=== PATIENT | female | born 1945 | race Caucasian/White ===

== ENCOUNTER 2020-09-12 18:51 | Inpatient (IN) ==
[2020-09-12] MEDS ORDERED: ACETAMINOPHEN 1,000 MG/100 ML BAG IV ONE (19:18)
[2020-09-12] MEDS: 0.9 % SODIUM CHLORIDE 1,000 ML IV SCH ×2 (19:21→22:09)
--- NOTE | 2020-09-12 19:29 | Emergency Department Note ---
Altered Mental Status HPI General Chief Complaint: Altered Mental Status Stated Complaint: cough, altered mental Time Seen by Provider: 09/12/20 18:55 Source: EMS Mode of arrival: EMS History of Present Illness HPI Narrative: This is a 74-year-old female with a history of dementia recently placed on Namenda about 1 month ago who presents with increasing confusion and altered mental status. Her son Rico is with her and gives all of her history today. He states that she has had memory problems for the last 2 years, and they have become progressively worse in the last month. She lives independently at home, and up until 2 weeks ago was able to accomplish most ADLs without assistance. He states that she is now forgetting to eat, take care of her animals, and is not urinating in the toilet. He states that about 2 weeks ago she stopped making sense with her speech. He also notes that she's been hallucinating people that aren't there. He does note that she had a cough. He cannot tell me when it started, but his sisters who are not local have noticed that she has been coughing while speaking with her on the telephone. Upon presentation the patient's temperature is 102.1 F by oral temp. She is not tachycardic and is satting normally on room air. Rapid Covid and influenza screens are negative. Has history of permanent pacemaker, which was switched to an ICD per her daughter's report. Carries a history of CAD, CKD stage III. Related Data Previous Rx's Medication Instructions Recorded losartan 50 mg tablet 50 mg PO QHS #30 tab 08/09/20 memantine 7 mg capsule 7 mg PO QHS #30 each 08/09/20 sprinkle,extended release 24hr Allergies Allergy/AdvReac Type Severity Reaction Status Date / Time Sulfa (Sulfonamide Allergy Intermediate Rash Verified 08/09/20 14:08 Antibiotics) Review of Systems ROS ROS Narrative: Narrative: All systems ED: reviewed and negative except as stated. [facility] Narrative Patient History Narrative: Narrative: Medical/Surgical/Family History All Active Problems (Updated 09/12/20 @ 20:15 by Analy Quiroz PA-C) Altered mental status (Acute) Fever (Acute) Hallucination (Acute) Dementia associated with other underlying disease (Acute) CKD stage G3b/A1, GFR 30-44 and albumin creatinine ratio <30 mg/g (Chronic) Localized pain (Chronic) Shoulder pain (Chronic) History of left knee replacement (Chronic ~2012) Status post arthroscopic surgery of left knee (Chronic ~2010) Pilonidal cyst (Chronic) Status post implantation of automatic cardioverter/defibrillator (AICD) (Chronic) Bradycardia (Chronic) Pulmonary nodule (Chronic) Enlarged uterus (Chronic) Anxiety (Chronic) Memory loss (Chronic) Nocturnal leg cramps (Chronic) CAD (coronary artery disease) (Chronic) Myalgia (Chronic) Chest pain, precordial (Chronic) Urinary incontinence (Chronic) Fever blister (Chronic) Hip pain (Chronic) Insomnia (Chronic) Hypertension (Chronic) Decreased renal function (Chronic) Medical History (Updated 09/12/20 @ 20:15 by Analy Quiroz PA-C) Anxiety Bradycardia CAD (coronary artery disease) Chest pain, precordial Decreased renal function Enlarged uterus Fever blister Hip pain Hypertension Stopped her losartan on her own accord. Restart at 50 mg qHS Insomnia Localized pain Memory loss Currently on her Namenda and donepezil. Myalgia Nocturnal leg cramps Pilonidal cyst Pulmonary nodule Shoulder pain Urinary incontinence Surgical History History of left knee replacement (~2012) Status post arthroscopic surgery of left knee (~2010) Status post implantation of automatic cardioverter/defibrillator (AICD) Family History Other No pertinent family history Social History Smoking Status: Former smoker Alcohol Intake Frequency: does not drink Substance Use: does not use Exam Narrative Narrative: General: Alert to self only, appears agitated and confused. Not able to follow commands. Nontoxic appearing. HEENT: PERRLA, EOMI, normocephalic. Dry mucous membranes. Normal facies and normal dentition. Rosacea rash noted to the face. Chest: Symmetric Respiratory: Lungs clear to auscultation bilaterally. No respiratory distress. Unlabored breathing. Dry cough noted. Heart: Regular rate and rhythm, no murmurs/clicks/rubs. Abdomen: Non-tender, Non distended, hypoactive bowel tones. No organomegaly. Extremities: Warm and well perfused. No edema. DP 2+ bilaterally. No venous stasis. Neuro: No focal deficits. Cranial nerves II-XII normal. Moving all fours. Skin: Warm dry, rosacea rash to the face no cyanosis. Psych: Alert, not oriented, minimally able to follow commands. Heme/Lymph: No bruising Course Course Course Narrative: 74-year-old female with baseline dementia and fever presents with altered mental status x2 weeks. Reevaluation(s) Reevaluation #1: Obtain basic labs, blood cultures, chest x-ray, urine, Covid and influenza screens, procalcitonin Start IV fluids, 30 mL/kg Acetaminophen for fever At this time she meets criteria for sepsis with altered mental status and fever, will start broad-spectrum antibiotics Vital Signs Vital signs: Vital Signs Temperature 99.1 F H 09/12/20 18:51 Pulse Rate 78 09/12/20 18:51 Respiratory Rate 14 09/12/20 18:51 Blood Pressure 123/70 09/12/20 18:51 Pulse Oximetry (%) 99 09/12/20 18:51 Temperature 102.1 F H 09/12/20 19:18 Pulse Rate 78 09/12/20 18:51 Respiratory Rate 14 09/12/20 18:51 Blood Pressure 123/70 09/12/20 18:51 Pulse Oximetry (%) 99 09/12/20 18:51 MDM MDM Narrative Medical decision making narrative: Altered mental status Fever Rule out sepsis Patient has been started on broad-spectrum antibiotics and IV fluids. Sepsis work-up is pending including a lactic acid, blood cultures, chest x-ray and, basic labs. A procalcitonin is also pending. The patient is signed out to Dr. Ottoniel Morales at change of shift. Please see his note for further details. Lab Data Result diagrams: 09/12/20 19:21 09/12/20 19:20 ED POC Tests ED POC Tests: ALAINA - Influenza A Negative ALAINA - Influenza B Negative ALAINA - SARS Antigen Negative Discharge Plan Patient/Caregiver Discharge Instructions Pt seen by DIRECTOR OF RETENTION/PA only: No Clinical Impression: Altered mental status, Fever, Hallucination Patient Disposition: Still a Patient Follow up with: Olga Bass MD [Primary Care Provider] - Prescriptions: No Action memantine [Namenda XR] 7 mg capsule,sprinkle,ER 24hr 7 mg PO QHS Qty: 30 RF: 12 losartan 50 mg tablet 50 mg PO QHS Qty: 30 RF: 12
[2020-09-12] MEDS ORDERED: PIPERACILLIN SODIUM/TAZOBACTAM 3.375 GM in DEXTROSE 5% IN WATER 50 ML IV ONE (19:31)
[2020-09-12 20:50] LABS: Basophils # (Auto) 0.06 K/mcL (0.00-0.20); Basophils % (Auto) 0.3 % (0.0-2.0); Eosinophils # (Auto) 0 K/mcL (0.00-0.70); Eosinophils % (Auto) 0 % (0.0-7.0); Hematocrit 38.9 % (36.0-48.0); Hemoglobin 12.7 g/dL (12.0-15.0); Lymphocytes % (Auto) 3.5 % (15.0-49.0); Mean Cell Volume 89.6 fL (80.0-100.0); Mean Corpuscular HGB Conc 32.6 g/dL (31.0-36.0); Mean Platelet Volume 11.3 fL (7.4-10.4); Monocytes # (Auto) 1.92 K/mcL (0.10-0.90); Monocytes % (Auto) 8.4 % (1.0-12.0); Neutrophils % (Auto) 87.8 % (38.0-78.0); Platelet Count 312 K/mcL (140-440); RBC 4.34 M/mcL (4.00-5.20); WBC 22.9 K/mcL (4.5-11.0)
[2020-09-12 20:57] LABS: Appearance,Urine CLOUDY (Clear); Bacteria,Urine FEW /hpf (0); Bilirubin,Urine Negative (Negative); Color,Urine AMBER; Culture Indicated,Urine Yes; Glucose,Urine (UA) Negative (Negative); Ketones,Urine Negative (Negative); Leukocyte Esterase,Urine Negative /ug (Negative); Mucus,Urine FEW /hpf; Nitrate,Urine Negative (Negative); Protein,Urine 30 mg/dL (Negative); Specific Gravity,Urine 1.019 (1.000-1.035); Urine Budding Yeast MANY /hpf; Urine Granular Cast 4 /lph (0-0); Urine RBC 13 /hpf (0-3); Urine Squamous Epithelial Cell 0 /hpf (0-4); Urine WBC 6 /hpf (0-4)
[2020-09-12 21:12] LABS: ALT/SGPT 53 U/L (<40); AST/SGOT 81 U/L (<32); Albumin 3.2 gm/dL (3.2-5.2); Albumin/Globulin Ratio 0.7 (1.0-2.3); Alkaline Phosphatase 199 U/L (39-117); Bilirubin,Total 0.9 mg/dL (0.1-1.0); Blood Urea Nitrogen 82 mg/dL (8-23); Calcium 9.6 mg/dL (8.6-10.4); Carbon Dioxide 24 mmol/L (22-30); Chloride 96 mmol/L (96-108); Globulin 4.4 gm/dL (2.2-3.7); Glomerular Filtration Rate 21; Glucose 100 mg/dL (70-105)
[2020-09-12] MEDS ORDERED: ONDANSETRON 4 MG/2 ML VIAL IV ONE (21:45)
[2020-09-12] MEDS ORDERED: ACETAMINOPHEN 325 MG TABLET PO PRN (21:45)
--- NOTE | 2020-09-12 21:54 | Emergency Department Note ---
HPI General Chief complaint: Altered Mental Status Stated complaint: cough, altered mental Time Seen by Provider: 09/12/20 18:55 Source: EMS Mode of arrival: EMS History of Present Illness HPI Narrative: Narrative: 74-year-old female presents to the emergency department with altered mental status. Was mainly seen by the physician bilingual medical assistant and then was signed out to me please refer to their note for full history and physical. Related Data Previous Rx's Medication Instructions Recorded losartan 50 mg tablet 50 mg PO QHS #30 tab 08/09/20 memantine 7 mg capsule 7 mg PO QHS #30 each 08/09/20 sprinkle,extended release 24hr Allergies Allergy/AdvReac Type Severity Reaction Status Date / Time Sulfa (Sulfonamide Allergy Intermediate Rash Verified 08/09/20 14:08 Antibiotics) Review of Systems ROS ROS Narrative: Narrative: [facility] Narrative Patient History Narrative: Narrative: Medical/Surgical/Family History All Active Problems (Updated 09/12/20 @ 21:57 by Ottoniel Morales DO) Altered mental status (Acute) Fever (Acute) Hallucination (Acute) Sepsis (Acute) Acute cystitis with hematuria (Acute) Dementia associated with other underlying disease (Acute) CKD stage G3b/A1, GFR 30-44 and albumin creatinine ratio <30 mg/g (Chronic) Localized pain (Chronic) Shoulder pain (Chronic) History of left knee replacement (Chronic ~2012) Status post arthroscopic surgery of left knee (Chronic ~2010) Pilonidal cyst (Chronic) Status post implantation of automatic cardioverter/defibrillator (AICD) (Chronic) Bradycardia (Chronic) Pulmonary nodule (Chronic) Enlarged uterus (Chronic) Anxiety (Chronic) Memory loss (Chronic) Nocturnal leg cramps (Chronic) CAD (coronary artery disease) (Chronic) Myalgia (Chronic) Chest pain, precordial (Chronic) Urinary incontinence (Chronic) Fever blister (Chronic) Hip pain (Chronic) Insomnia (Chronic) Hypertension (Chronic) Decreased renal function (Chronic) Medical History (Updated 09/12/20 @ 21:57 by Ottoniel Morales DO) Anxiety Bradycardia CAD (coronary artery disease) Chest pain, precordial Decreased renal function Enlarged uterus Fever blister Hip pain Hypertension Stopped her losartan on her own accord. Restart at 50 mg qHS Insomnia Localized pain Memory loss Currently on her Namenda and donepezil. Myalgia Nocturnal leg cramps Pilonidal cyst Pulmonary nodule Shoulder pain Urinary incontinence Surgical History History of left knee replacement (~2012) Status post arthroscopic surgery of left knee (~2010) Status post implantation of automatic cardioverter/defibrillator (AICD) Family History Other No pertinent family history Social History Smoking Status: Former smoker Alcohol Intake Frequency: does not drink Substance Use: does not use Exam Narrative Narrative: Narrative: Course Vital Signs Vital signs: Vital Signs Temperature 99.1 F H 09/12/20 18:51 Pulse Rate 78 09/12/20 18:51 Respiratory Rate 14 09/12/20 18:51 Blood Pressure 123/70 09/12/20 18:51 Pulse Oximetry (%) 99 09/12/20 18:51 Temperature 99.9 F H 09/12/20 20:48 Pulse Rate 87 09/12/20 20:48 Respiratory Rate 14 09/12/20 18:51 Blood Pressure 117/76 09/12/20 20:48 Pulse Oximetry (%) 92 09/12/20 20:48 MDM MDM Narrative Medical decision making narrative: Narrative: Patient presents here with altered mental status. Found that patient seems to have a UTI as well as an acute kidney injury and patient was septic and met SIRS criteria. Did have an elevated white count. She did receive Zosyn here which should have good coverage for her UTI. We will continue that. She did receive 1 L of IV fluids due to worry about fluid overload we did not give her the full 30 mL/kg bolus which I think this is reasonable. She is well hydrated afterwards. On the reperfusion exam which was done by myself at 2150 patient has good capillary refill she has a regular rate and rhythm of her heart. Normal lung sounds bilaterally. She has 2+ pulses in the carotids femorals and radials. She is mildly confused but is alert. And her capillary refill is normal. I did get a chest x-ray as interpreted by myself there is no signs of pneumonia or pneumothorax no acute findings found on the chest x-ray based on my interpretation. Patient at this time looks well and but she does need to be admitted for continued IV antibiotics as well as the kidney injury. I did speak with the hospitalist Dr. Solano who agreed to admit the patient to the PCU. We did speak with family and they confirmed the CODE STATUS to be DNR/DNI but do ev erything up to that point. The person I talked to that made this decision was daughter who is the decision maker for her. Patient does meet criteria for severe sepsis secondary to a known infection as well as the leukocytosis meeting SIRS criteria and having acute organ dysfunction with the acute kidney injury. Although patient has had stable blood pressure and she is not on any signs of septic shock as well as having a negative lactate. Lab Data Result diagrams: 09/12/20 19:21 09/12/20 19:20 Labs: Lab Results 09/12/20 09/12/20 09/12/20 Range/Units 19:20 19:20 19:20 WBC (4.5-11.0) K/mcL RBC (4.00-5.20) M/mcL Hgb (12.0-15.0) g/dL Hct (36.0-48.0) % MCV (80.0-100.0) fL MCH (26.0-34.0) pg MCHC (31.0-36.0) g/dL RDW (11.5-14.5) % Plt Count (140-440) K/mcL MPV (7.4-10.4) fL Neut % (Auto) (38.0-78.0) % Lymph % (Auto) (15.0-49.0) % [place] % (Auto) (1.0-12.0) % Eos % (Auto) (0.0-7.0) % Baso % (Auto) (0.0-2.0) % Lymph # (Auto) (1.50-4.80) K/mcL [place] # (Auto) (0.10-0.90) K/mcL Eos # (Auto) (0.00-0.70) K/mcL Baso # (Auto) (0.00-0.20) K/mcL Absolute Neutrophils (1.80-8.00) K/mcL VBG Lactic Acid 1.4 (0.5-2.0) mmol/L Sodium 134 (133-145) mmol/L Potassium 3.9 (3.3-5.1) mmol/L Chloride 96 (96-108) mmol/L Carbon Dioxide 24 (22-30) mmol/L Anion Gap 14.0 (8.0-16.0) BUN 82 H (8-23) mg/dL Creatinine 2.2 H (0.6-1.1) mg/dL GFR Calculation 21 Glucose 100 (70-105) mg/dL Calcium 9.6 (8.6-10.4) mg/dL Total Bilirubin 0.9 (0.1-1.0) mg/dL AST 81 H (<32) U/L ALT 53 H (<40) U/L Alkaline Phosphatase 199 H (39-117) U/L Total Protein 7.6 (5.9-8.4) gm/dL Albumin 3.2 (3.2-5.2) gm/dL Globulin 4.4 H (2.2-3.7) gm/dL Albumin/Globulin Ratio 0.7 L (1.0-2.3) Procalcitonin 1.83 H (<0.10) ng/mL Urine Color Urine Appearance (Clear) Urine pH (5.0-9.0) Ur Specific Edgar (1.000-1.035) Urine Protein (Negative) mg/dL Urine Glucose (UA) (Negative) mg/dL Urine Ketones (Negative) mg/dL Urine Occult Blood (Negative) mg/dL Urine Nitrate (Negative) Urine Bilirubin (Negative) mg/dL Urine Urobilinogen mg/dL Ur Leukocyte Esterase (Negative) /ug Urine RBC (0-3) /hpf Urine WBC (0-4) /hpf Ur Squamous Epith Cells (0-4) /hpf Urine Bacteria (0) /hpf Granular Casts (0-0) /lph Urine Mucus (None) /hpf Urine Yeast (Budding) (None) /hpf Ur Culture Indicated? 09/12/20 09/12/20 Range/Units 19:21 19:21 WBC 22.9 H (4.5-11.0) K/mcL RBC 4.34 (4.00-5.20) M/mcL Hgb 12.7 (12.0-15.0) g/dL Hct 38.9 (36.0-48.0) % MCV 89.6 (80.0-100.0) fL MCH 29.3 (26.0-34.0) pg MCHC 32.6 (31.0-36.0) g/dL RDW 14.0 (11.5-14.5) % Plt Count 312 (140-440) K/mcL MPV 11.3 H (7.4-10.4) fL Neut % (Auto) 87.8 H (38.0-78.0) % Lymph % (Auto) 3.5 L (15.0-49.0) % [place] % (Auto) 8.4 (1.0-12.0) % Eos % (Auto) 0 (0.0-7.0) % Baso % (Auto) 0.3 (0.0-2.0) % Lymph # (Auto) 0.80 L (1.50-4.80) K/mcL [place] # (Auto) 1.92 H (0.10-0.90) K/mcL Eos # (Auto) 0 (0.00-0.70) K/mcL Baso # (Auto) 0.06 (0.00-0.20) K/mcL Absolute Neutrophils 20.11 H (1.80-8.00) K/mcL VBG Lactic Acid (0.5-2.0) mmol/L Sodium (133-145) mmol/L Potassium (3.3-5.1) mmol/L Chloride (96-108) mmol/L Carbon Dioxide (22-30) mmol/L Anion Gap (8.0-16.0) BUN (8-23) mg/dL Creatinine (0.6-1.1) mg/dL GFR Calculation Glucose (70-105) mg/dL Calcium (8.6-10.4) mg/dL Total Bilirubin (0.1-1.0) mg/dL AST (<32) U/L ALT (<40) U/L Alkaline Phosphatase (39-117) U/L Total Protein (5.9-8.4) gm/dL Albumin (3.2-5.2) gm/dL Globulin (2.2-3.7) gm/dL Albumin/Globulin Ratio (1.0-2.3) Procalcitonin (<0.10) ng/mL Urine Color [place]iana Urine Appearance Cloudy A (Clear) Urine pH 5.0 (5.0-9.0) Ur Specific [place] 1.019 (1.000-1.035) Urine Protein 30 A (Negative) mg/dL Urine Glucose (UA) Negative (Negative) mg/dL Urine Ketones Negative (Negative) mg/dL Urine Occult Blood 0.20 (Negative) mg/dL Urine Nitrate Negative (Negative) Urine Bilirubin Negative (Negative) mg/dL Urine Urobilinogen 4.0 A mg/dL Ur Leukocyte Esterase Negative (Negative) /ug Urine RBC 13 H (0-3) /hpf Urine WBC 6 H (0-4) /hpf Ur Squamous Epith Cells 0 (0-4) /hpf Urine Bacteria Few A (0) /hpf Granular Casts 4 H (0-0) /lph Urine Mucus Few A (None) /hpf Urine Yeast (Budding) Many A (None) /hpf Ur Culture Indicated? Yes ED POC Tests ED POC Tests: ALAINA - Influenza A Negative ALAINA - Influenza B Negative ALAINA - SARS Antigen Negative Discharge Plan Patient/Caregiver Discharge Instructions Pt seen by TRAVELERS' AID WORKER/PA only: Yes Clinical Impression: Hallucination, Acute cystitis with hematuria Altered mental status Qualifiers: Altered mental status type: unspecified Qualified Code(s): R41.82 - Altered mental status, unspecified Fever Qualifiers: Fever type: unspecified Qualified Code(s): R50.9 - Fever, unspecified Sepsis Qualifiers: Sepsis type: sepsis due to unspecified organism Sepsis acute organ dysfunction status: with acute organ dysfunction Severe sepsis acute organ dysfunction type: acute renal failure Acute renal failure type: unspecified Severe sepsis shock status: without septic shock Qualified Code(s): A41.9 - Sepsis, unspecified organism Activity: increase activity as tolerated Patient Disposition: Xfer As Inpt ([facility]) Follow up with: Olga Bass MD [Primary Care Provider] - Prescriptions: No Action memantine [Namenda XR] 7 mg capsule,sprinkle,ER 24hr 7 mg PO QHS Qty: 30 RF: 12 losartan 50 mg tablet 50 mg PO QHS Qty: 30 RF: 12
[2020-09-13] MEDS: PIPERACILLIN SODIUM/TAZOBACTAM 3.375 GM in DEXTROSE 5% IN WATER 50 ML IV SCH ×2 (00:45→05:28)
[2020-09-13 07:14] LABS: Basophils # (Auto) 0.05 K/mcL (0.00-0.20); Basophils % (Auto) 0.3 % (0.0-2.0); Eosinophils # (Auto) 0.01 K/mcL (0.00-0.70); Eosinophils % (Auto) 0.1 % (0.0-7.0); Hematocrit 35.3 % (36.0-48.0); Hemoglobin 11.7 g/dL (12.0-15.0); Lymphocytes # (Auto) 1.06 K/mcL (1.50-4.80); Lymphocytes % (Auto) 5.9 % (15.0-49.0); Mean Cell Volume 89.1 fL (80.0-100.0); Mean Corpuscular HGB Conc 33.1 g/dL (31.0-36.0); Mean Platelet Volume 10.9 fL (7.4-10.4); Monocytes # (Auto) 1.42 K/mcL (0.10-0.90); Monocytes % (Auto) 7.9 % (1.0-12.0); Neutrophils % (Auto) 85.8 % (38.0-78.0); Platelet Count 274 K/mcL (140-440); RBC 3.96 M/mcL (4.00-5.20); Red Cell Distribution Width 14.2 % (11.5-14.5)
--- NOTE | 2020-09-13 07:38 | XRay Report ---
HISTORY: Cough, altered mental status FINDINGS: A large alveolar infiltrate is present in the right upper lobe which contains air bronchograms. There is a band of atelectasis at the left costophrenic sulcus. The lungs are otherwise clear. The heart size is normal. Pacemaker is well-positioned. There is no congestive heart failure or pleural effusion. Comparison with the prior exam from 10/01/14 shows the pneumonia is new. IMPRESSION: Right upper lobe pneumonia Interpreted and Authenticated by: Abelino Street 09/13/20
[2020-09-13] MEDS ORDERED: POLYETHYLENE GLYCOL 3350 17 GM PACKET PO PRN ×2 (08:20→12:16)
[2020-09-13] MEDS ORDERED: ACETAMINOPHEN 650 MG/65 ML BAG IV PRN ×2 (08:20→12:16)
[2020-09-13] MEDS ORDERED: ACETAMINOPHEN 325 MG TABLET PO PRN ×3 (08:20→12:16)
[2020-09-13] MEDS ORDERED: guaiFENesin/CODEINE 10 ML UDC PO PRN ×2 (08:20→12:16)
[2020-09-13] MEDS ORDERED: MAGNESIUM SULFATE 2 GM/50 ML BAG IV PRN ×2 (08:20→12:16)
[2020-09-13] MEDS ORDERED: ONDANSETRON 4 MG ODT TABLET SL PRN ×2 (08:20→12:16)
[2020-09-13] MEDS ORDERED: POTASSIUM CHLORIDE 40 MEQ in DEXTROSE 5% IN WATER 500 ML IV PRN ×2 (08:20→12:16)
[2020-09-13] MEDS ORDERED: BISACODYL 10 MG SUPP.RECT PR PRN ×2 (08:20→12:16)
[2020-09-13] MEDS ORDERED: ONDANSETRON 4 MG/2 ML VIAL IV PRN ×2 (08:20→12:16)
--- NOTE | 2020-09-13 08:20 | Internal Med History&Physical ---
HPI History of Present Illness Patient information: Note initiated : 09/12/20 at11:17 pm Service Date, if different from initiated Date: [] Patient: Rosie Whitfield a 74 y/o F admitted on 09/13/20 for cough, altered mental. Chief Complaint: Increasing confusion History of present illness: Ms. Whitfield is a 74 year old F history of dementia who lives independently and frequently visited by her son who lives nearby. Patient has been baseline state of health however over the last few days she has gotten increasingly weak confused and incoherent. Son has found her in a days and was urinating on the floor. She was brought into the ER with change in me ntal status/low-grade fever Initial work-up was consistent with severe sepsis with white count 22.9, elevated lactate and evidence of endorgan failure including creatinine of 2.2. Chest imaging right upper lobe pneumonia/pyuria. Cultures were obtained and patient was started on antibiotic coverage. Subsequently hospitalist service was consulted At the time of evaluation patient is very confused and current unable to provide any history. Most of the history is obtained from review of medical records and ER physician. No family members present. Review of systems Attempted but could not perform due to patient's mental status PFSH PFSH All Active Problems (Updated 09/12/20 @ 21:57 by Ottoniel Morales DO) Altered mental status (Acute) Fever (Acute) Hallucination (Acute) Sepsis (Acute) Acute cystitis with hematuria (Acute) Dementia associated with other underlying disease (Acute) CKD stage G3b/A1, GFR 30-44 and albumin creatinine ratio <30 mg/g (Chronic) Localized pain (Chronic) Shoulder pain (Chronic) History of left knee replacement (Chronic ~2012) Status post arthroscopic surgery of left knee (Chronic ~2010) Pilonidal cyst (Chronic) Status post implantation of automatic cardioverter/defibrillator (AICD) (Chronic) Bradycardia (Chronic) Pulmonary nodule (Chronic) Enlarged uterus (Chronic) Anxiety (Chronic) Memory loss (Chronic) Nocturnal leg cramps (Chronic) CAD (coronary artery disease) (Chronic) Myalgia (Chronic) Chest pain, precordial (Chronic) Urinary incontinence (Chronic) Fever blister (Chronic) Hip pain (Chronic) Insomnia (Chronic) Hypertension (Chronic) Decreased renal function (Chronic) Medical History (Updated 09/12/20 @ 21:57 by Ottoniel Morales DO) Anxiety Bradycardia CAD (coronary artery disease) Chest pain, precordial Decreased renal function Enlarged uterus Fever blister Hip pain Hypertension Stopped her losartan on her own accord. Restart at 50 mg qHS Insomnia Localized pain Memory loss Currently on her Namenda and donepezil. Myalgia Nocturnal leg cramps Pilonidal cyst Pulmonary nodule Shoulder pain Urinary incontinence Surgical History History of left knee replacement (~2012) Status post arthroscopic surgery of left knee (~2010) Status post implantation of automatic cardioverter/defibrillator (AICD) Family History Other No pertinent family history Social History marital status: occupational status: retired physical activity: walking and bicycling frequency: 5-6 times per week duration: 30-45 minutes/day smoking status: Unknown if ever smoked smoking status stop date: 06/30/77 alcohol intake frequency: does not drink substance use type: does not use MEDS/ALLERGIES Home Medications and Allergies Home Medications Medication Instructions Recorded Confirmed Type losartan 50 mg tablet 50 mg PO QHS #30 tab 08/09/20 09/13/20 Rx memantine 7 mg capsule 7 mg PO QHS #30 each 08/09/20 09/13/20 Rx sprinkle,extended release 24hr Allergies Allergy/AdvReac Type Severity Reaction Status Date / Time Sulfa (Sulfonamide Allergy Intermediate Rash Verified 08/09/20 14:08 Antibiotics) EXAM Constitutional Vitals: Temp Pulse Resp BP Pulse Ox 96.9 F L 70 12 134/35 98 09/13/20 08:01 09/13/20 08:10 09/13/20 08:10 09/13/20 08:01 09/13/20 08:10 Confused lethargic fatigued Head normocephalic Oral cavity dry No ear nose discharge Eye movement symmetrical Neck supple no lymphadenopathy S1-S2 tachycardia Nonlabored breathing Nondistended nontender abdomen Lower extremity no cyanosis clubbing or joint swelling Skin no suspicious lesion Psych confused, delirious Neuro GCS 3 DATA Data Completed and Pending Labs: Labs from last 24 hours 0309/12/20 09/12/20 05:14 19:21 19:21 WBC 18.0 H 22.9 H RBC 3.96 L 4.34 Hgb 11.7 L 12.7 Hct 35.3 L 38.9 MCV 89.1 89.6 MCH 29.5 29.3 MCHC 33.1 32.6 RDW 14.2 14.0 Plt Count 274 312 MPV 10.9 H 11.3 H Neut % (Auto) 85.8 H 87.8 H Lymph % (Auto) 5.9 L 3.5 L [place] % (Auto) 7.9 8.4 Eos % (Auto) 0.1 0 Baso % (Auto) 0.3 0.3 Lymph # (Auto) 1.06 L 0.80 L [place] # (Auto) 1.42 H 1.92 H Eos # (Auto) 0.01 0 Baso # (Auto) 0.05 0.06 Absolute Neutrophils 15.45 H 20.11 H VBG Lactic Acid Sodium Potassium Chloride Carbon Dioxide Anion Gap BUN Creatinine GFR Calculation Glucose Calcium Total Bilirubin AST ALT Alkaline Phosphatase Total Protein Albumin Globulin Albumin/Globulin Ratio Procalcitonin Urine Color Viviana Urine Appearance Cloudy A Urine pH 5.0 Ur Specific Gary 1.019 Urine Protein 30 A Urine Glucose (UA) Negative Urine Ketones Negative Urine Occult Blood 0.20 Urine Nitrate Negative Urine Bilirubin Negative Urine Urobilinogen 4.0 A Ur Leukocyte Esterase Negative Urine RBC 13 H Urine WBC 6 H Ur Squamous Epith Cells 0 Urine Bacteria Few A Granular Casts 4 H Urine Mucus Few A Urine Yeast (Budding) Many A Ur Culture Indicated? Yes 09/12/20 09/12/20 09/12/20 19:20 19:20 19:20 WBC RBC Hgb Hct MCV MCH MCHC RDW Plt Count MPV Neut % (Auto) Lymph % (Auto) [place] % (Auto) Eos % (Auto) Baso % (Auto) Lymph # (Auto) [place] # (Auto) Eos # (Auto) Baso # (Auto) Absolute Neutrophils VBG Lactic Acid 1.4 Sodium 134 Potassium 3.9 Chloride 96 Carbon Dioxide 24 Anion Gap 14.0 BUN 82 H Creatinine 2.2 H GFR Calculation 21 Glucose 100 Calcium 9.6 Total Bilirubin 0.9 AST 81 H ALT 53 H Alkaline Phosphatase 199 H Total Protein 7.6 Albumin 3.2 Globulin 4.4 H Albumin/Globulin Ratio 0.7 L Procalcitonin 1.83 H Urine Color Urine Appearance Urine pH Ur Specific Gary Urine Protein Urine Glucose (UA) Urine Ketones Urine Occult Blood Urine Nitrate Urine Bilirubin Urine Urobilinogen Ur Leukocyte Esterase Urine RBC Urine WBC Ur Squamous Epith Cells Urine Bacteria Granular Casts Urine Mucus Urine Yeast (Budding) Ur Culture Indicated? A/P Narrative A/P Narrative: * Severe sepsis with multiple organ dysfunction including BRITTNY/elevated LFT s/mental status change/elevated lactate-white count over 22,900/procalcitonin 1.83. Likely source right upper lobe pneumonia/UTI. Transfer to ICU for close hemodynamic monitoring. Pancultures antibiotic coverage, use pressors if indicated, [place] 2 score 16 on presentation indicating high risk modality/PSI over 100 * Right upper lobe pneumonia continue antibiotic coverage. [id number] * Complicated UTI on antibiotic coverage. Await cultures. * Acute renal failure creatinine 2.2 baseline 1. Secondary to severe sepsis endorgan dysfunction. * Elevated LFTs secondary to sepsis endorgan dysfunction * History of hypertension hold antihypertensives until sepsis resolves * History dementia continue memantine * Prophylaxis Heparin Plan * Inpatient ICU admission in light of severe sepsis with multiorgan dysfunction * Empiric antibiotic coverage/crystalloid/lactate trending/pancultures * Close hemodynamic monitoring * Avoid nephrotoxins * PT OT nutrition support Time Spent With Patient Time: Total time spent is greater than 50% in coordination of care (as documented) at patient's floor/unit and/or counseling patient:
[2020-09-13] MEDS ORDERED: 0.9 % SODIUM CHLORIDE 1,000 ML IV SCH ×2 (08:25→12:16)
[2020-09-13] MEDS: 0.9 % SODIUM CHLORIDE 1,000 ML IV SCH ×3 (08:26→15:03)
[2020-09-13] MEDS ORDERED: DOCUSATE SODIUM 100 MG CAPSULE PO SCH (09:00)
[2020-09-13] MEDS ORDERED: MULTIVIT,THER IRON,CA,FA & MIN 1 TABLET PO SCH (09:00)
[2020-09-13] MEDS ORDERED: HEPARIN 5,000 UNIT/ML VIAL SQ SCH (09:00)
[2020-09-13] MEDS ORDERED: cefTRIAXone 2 GM in DEXTROSE 5% IN WATER 50 ML IV SCH (09:00)
[2020-09-13 09:50] LABS: ALT/SGPT 44 U/L (<40); AST/SGOT 54 U/L (<32); Albumin 2.3 gm/dL (3.2-5.2); Albumin/Globulin Ratio 0.5 (1.0-2.3); Alkaline Phosphatase 150 U/L (39-117); Bilirubin,Direct 0.4 mg/dL (<0.3); Bilirubin,Total 0.8 mg/dL (0.1-1.0); Blood Urea Nitrogen 73 mg/dL (8-23); Calcium 8.9 mg/dL (8.6-10.4); Carbon Dioxide 25 mmol/L (22-30); Chloride 104 mmol/L (96-108); Globulin 4.4 gm/dL (2.2-3.7); Glomerular Filtration Rate 22; Glucose 96 mg/dL (70-105); Lactate Dehydrogenase 169 U/L (135-225); Phosphorous 3.6 mg/dL (2.5-4.5); Triglycerides 198 mg/dL (<150); Uric Acid 6.5 mg/dL (2.5-8.0)
[2020-09-13] MEDS ORDERED: AZITHROMYCIN 500 MG in DEXTROSE 5% IN WATER 250 ML IV SCH (10:00)
--- NOTE | 2020-09-13 11:05 | Internal Med Progress Note ---
SUBJECTIVE Subjective Patient information: Note initiated : 09/13/20 at 11:02 am Service Date, if different from initiated Date: [] Patient: Rosie Whitfield a 74 y/o F admitted on 09/13/20 for cough, altered mental. Chief Complaint: [] Interval history: Ms. Whitfield is a 74 year old F history of dementia who lives independently and frequently visited by her son who lives nearby. Patient has been baseline state of health however over the last few days she has gotten increasingly weak confused and incoherent. Son has found her in a days and was urinating on the floor. She was brought into the ER with change in mental status/low-grade fever Initial work-up was consistent with severe sepsis with white count 22.9, elevated lactate and evidence of endorgan failure including creatinine of 2.2. Chest imaging right upper lobe pneumonia/pyuria. Cultures were obtained and patient was started on antibiotic coverage. Subsequently hospitalist service was consulted At the time of evaluation patient is very confused and current unable to provide any history. Most of the history is obtained from review of medical records and ER physician. No family members present. 09/13-patient clinically improved. White count down to 18,000. On broad antib iotic coverage. Improving endorgan dysfunction. More lucid and able to hold a conversation. Creatinine starting to downtrend now at 2.1 from a peak of 2.2. Stable hemodynamics. Transfer to medical floor. Await cultures. Continue nutrition support/therapies Constitutional Vitals: Vital Signs Temp Pulse Resp BP Pulse Ox 96.9 F L 70 23 H 125/64 97 09/13/20 08:01 09/13/20 10:44 09/13/20 10:44 09/13/20 10:11 09/13/20 10:44 Period Temp Pulse Resp BP Sys/Jones Pulse Ox Last 24 Hr 96.8 F-102.1 F 70-87 12-28 92-151/34-96 92-100 Intake and Output 09/12/20 09/13/20 09/13/20 21:59 05:59 13:59 Intake Total 1150 210 890 Output Total 450 Balance 1150 210 440 Weight 90.718 kg 78.698 kg Alert and respond to commands Nonlabored breathing on 1 L oxygen Improved tachycardia Rapid shallow breathing No anxiety Intake & Output: Intake & Output 09/12/20 09/13/20 09/13/20 21:59 05:59 13:59 Intake Total 1150 210 890 Output Total 450 Balance 1150 210 440 Weight 90.718 kg 78.698 kg Intake: IV 1150 210 890 Sodium Chloride 0.9% 1,000 ml @ 1000 210 790 100 mls/hr IV .Q10H [facility] Rx#: [id number] Zosyn 3.375 gm In Dextrose 5% 50 50 in Water 50 ml @ 100 mls/hr IV Q8H [facility] Rx#:[id number] Rocephin 2 gm In Dextrose 5% in 50 Water 50 ml @ 100 mls/hr IV DAILY [facility] Rx#:[id number] Output: Void Amount 450 Other: Urine Appearance Fem Cath Clear Urine Color Dark Yellow Fem Cath Dark Yellow OBJ DATA Labs CBC & Chem 7: 09/13/20 05:14 09/13/20 08:47 Labs: Abnormal Lab Results 09/13/20 09/13/20 09/12/20 08:47 05:14 19:21 WBC 18.0 H RBC 3.96 L Hgb 11.7 L Hct 35.3 L MPV 10.9 H Neut % (Auto) 85.8 H Lymph % (Auto) 5.9 L Lymph # (Auto) 1.06 L [place] # (Auto) 1.42 H Absolute Neutrophils 15.45 H BUN 73 H Creatinine 2.1 H Magnesium 2.7 H Direct Bilirubin 0.4 H AST 54 H ALT 44 H Alkaline Phosphatase 150 H Albumin 2.3 L Globulin 4.4 H Albumin/Globulin Ratio 0.5 L Triglycerides 198 H Procalcitonin Urine Appearance Cloudy A Urine Protein 30 A Urine Urobilinogen 4.0 A Urine RBC 13 H Urine WBC 6 H Urine Bacteria Few A Granular Casts 4 H Urine Mucus Few A Urine Yeast (Budding) Many A 09/12/20 09/12/20 09/12/20 19:21 19:20 19:20 WBC 22.9 H RBC Hgb Hct MPV 11.3 H Neut % (Auto) 87.8 H Lymph % (Auto) 3.5 L Lymph # (Auto) 0.80 L [place] # (Auto) 1.92 H Absolute Neutrophils 20.11 H BUN 82 H Creatinine 2.2 H Magnesium Direct Bilirubin AST 81 H ALT 53 H Alkaline Phosphatase 199 H Albumin Globulin 4.4 H Albumin/Globulin Ratio 0.7 L Triglycerides Procalcitonin 1.83 H Urine Appearance Urine Protein Urine Urobilinogen Urine RBC Urine WBC Urine Bacteria Granular Casts Urine Mucus Urine Yeast (Budding) Meds: Medications Acetaminophen (Acetaminophen 325 Mg Tablet) 650 mg PO Q6HP PRN; Protocol PRN Reason: Per Pain Protocol/Fever > 101 Acetaminophen (Acetaminophen 325 Mg Tablet) 650 mg PO Q4-6HP PRN; Protocol PRN Reason: Per Pain Protocol/Fever > 101 Bisacodyl (Bisacodyl 10 Mg Supp.Rect) 10 mg ME Q2-3DAYS PRN PRN Reason: Constipation Docusate Sodium (Docusate Sodium 100 Mg Capsule) 100 mg PO BID [facility] Last Admin: 09/13/20 09:25 Dose: 100 mg Documented by: Guaifenesin/Codeine Phosphate (Guaifenesin/Codeine 10 Ml Udc) 10 ml PO Q4HP PRN PRN Reason: Cough Heparin Sodium (Porcine) (Heparin 5,000 Unit/Ml Vial) 5,000 unit SQ Q12 [facility] Last Admin: 09/13/20 09:25 Dose: 5,000 unit Documented by: Sodium Chloride (Sodium Chloride 0.9%) 1,000 mls @ 0 mls/hr IV .Q0M [facility] Last Infusion: 09/12/20 20:09 Dose: Infused Documented by: Azithromycin 500 mg/ Dextrose 250 mls @ 250 mls/hr IV DAILY@1000 [facility]; Protocol Stop: 09/15/20 10:59 Last Admin: 09/13/20 10:16 Dose: 250 mls/hr Documented by: Potassium Chloride 40 meq/ (Dextrose) 520 mls @ 130 mls/hr IV UD PRN PRN Reason: K+ = or < 3.5 Acetaminophen (Ofirmev) 650 mg in 65 mls @ 130 mls/hr IV Q6HP PRN; Protocol PRN Reason: Per Pain Protocol/Fever > 101 Magnesium Sulfate (Magnesium Sulfate) 2 gm in 50 mls @ 50 mls/hr IV UD PRN PRN Reason: MG = or < 1.7 Sodium Chloride (Sodium Chloride 0.9%) 1,000 mls @ 75 mls/hr IV .[id number] [facility] Last Admin: 09/13/20 08:34 Dose: 75 mls/hr Documented by: Ceftriaxone Sodium 2 gm/ (Dextrose) 50 mls @ 100 mls/hr IV DAILY [facility]; Protocol Last Infusion: 09/13/20 10:00 Dose: Infused Documented by: Iron Carb/Multivit/[place]/Folic Acid (Multivit,Ther Iron,Ca,Fa & Min 1 Tablet) 1 tab PO DAILY [facility] Last Admin: 09/13/20 09:25 Dose: 1 tab Documented by: Melatonin (Melatonin 3 Mg Tablet) 3 mg PO HSP PRN PRN Reason: Insomnia Ondansetron HCl (Ondansetron 4 Mg Odt Tablet) 4 mg SL Q4-6HP PRN; Protocol PRN Reason: Nausea And Vomiting Ondansetron HCl (Ondansetron 4 Mg/2 Ml Vial) 4 mg IV Q4-6HP PRN; Protocol PRN Reason: Nausea And Vomiting Polyethylene Glycol (Polyethylene Glycol 3350 17 Gm Packet) 17 gm PO DAILYP PRN PRN Reason: Constipation Senna/Docusate Sodium (Sennosides/Docusate Sodium 1 Tab Tablet) 1 tab PO HS [facility] Sodium Chloride (0.9 % Sodium Chloride 10 Ml Syringe) 10 ml IV Q8 [facility] A/P Narrative A/P Narrative: * Severe sepsis with multiple organ dysfunction including BRITTNY/elevated LFTs/mental status change/elevated lactate- clinical improvement noted. White count down to 18 K, stable hemodynamics. Continue crystalloid/management per guidelines * Right upper lobe pneumonia -clinical improvement noted on antibiotic coverage. * Complicated UTI on antibiotic coverage. * Acute renal failure creatinine 2.2 baseline 1. Improving. * Elevated LFTs secondary to sepsis endorgan dysfunction, clinically improving * History of hypertension hold antihypertensives until sepsis resolves * History dementia continue memantine * Prophylaxis Heparin Plan * Transfer to medical floor * Continue antibiotic coverage/crystalloid * Close hemodynamic monitoring * Monitor renal function * PT OT nutrition support * Discharge planning possibly SNF versus home health to be coordinated by case management Time Spent With Patient Time: Total time spent is greater than 50% in coordination of care (as documented) at patient's floor/unit and/or counseling patient:
[2020-09-13] MEDS ORDERED: PIPERACILLIN SODIUM/TAZOBACTAM 2.25 GM in DEXTROSE 5% IN WATER 50 ML IV SCH (12:00)
[2020-09-13] MEDS: 0.9 % SODIUM CHLORIDE 10 ML SYRINGE IV SCH ×2 (13:15→22:07)
[2020-09-13] MEDS ORDERED: 0.9 % SODIUM CHLORIDE 10 ML SYRINGE IV SCH (14:00)
[2020-09-13] MEDS ORDERED: MELATONIN 3 MG TABLET PO PRN (21:00)
[2020-09-13] MEDS ORDERED: SENNOSIDES/DOCUSATE SODIUM 1 TAB TABLET PO SCH (21:00)
[2020-09-13] MEDS: MELATONIN 3 MG TABLET PO PRN (22:06)
[2020-09-13] MEDS: DOCUSATE SODIUM 100 MG CAPSULE PO SCH (22:06)
[2020-09-13] MEDS: SENNOSIDES/DOCUSATE SODIUM 1 TAB TABLET PO SCH (22:06)
[2020-09-13] MEDS: HEPARIN 5,000 UNIT/ML VIAL SQ SCH (22:07)
[2020-09-14] MEDS: 0.9 % SODIUM CHLORIDE 1,000 ML IV SCH ×3 (03:04→18:16)
[2020-09-14] MEDS: 0.9 % SODIUM CHLORIDE 10 ML SYRINGE IV SCH ×3 (05:58→20:13)
[2020-09-14 07:28] LABS: Basophils # (Auto) 0.06 K/mcL (0.00-0.20); Basophils % (Auto) 0.5 % (0.0-2.0); Eosinophils # (Auto) 0.17 K/mcL (0.00-0.70); Eosinophils % (Auto) 1.3 % (0.0-7.0); Hemoglobin 11.3 g/dL (12.0-15.0); Lymphocytes # (Auto) 1.57 K/mcL (1.50-4.80); Lymphocytes % (Auto) 12.3 % (15.0-49.0); Mean Cell Volume 91.9 fL (80.0-100.0); Mean Corpuscular HGB Conc 32.3 g/dL (31.0-36.0); Mean Platelet Volume 10.7 fL (7.4-10.4); Monocytes # (Auto) 1.32 K/mcL (0.10-0.90); Monocytes % (Auto) 10.3 % (1.0-12.0); Neutrophils % (Auto) 75.6 % (38.0-78.0); Platelet Count 304 K/mcL (140-440); RBC 3.81 M/mcL (4.00-5.20); Red Cell Distribution Width 14.7 % (11.5-14.5); WBC 12.8 K/mcL (4.5-11.0)
[2020-09-14] MEDS: MULTIVIT,THER IRON,CA,FA & MIN 1 TABLET PO SCH (08:09)
[2020-09-14] MEDS: DOCUSATE SODIUM 100 MG CAPSULE PO SCH ×2 (08:09→20:09)
[2020-09-14 08:11] LABS: ALT/SGPT 49 U/L (<40); AST/SGOT 77 U/L (<32); Albumin 2.2 gm/dL (3.2-5.2); Albumin/Globulin Ratio 0.6 (1.0-2.3); Alkaline Phosphatase 174 U/L (39-117); Bilirubin,Direct 0.2 mg/dL (<0.3); Bilirubin,Total 0.5 mg/dL (0.1-1.0); Blood Urea Nitrogen 55 mg/dL (8-23); Calcium 8.7 mg/dL (8.6-10.4); Carbon Dioxide 23 mmol/L (22-30); Chloride 108 mmol/L (96-108); Globulin 3.7 gm/dL (2.2-3.7); Glomerular Filtration Rate 33; Glucose 95 mg/dL (70-105); Lactate Dehydrogenase 226 U/L (135-225); Phosphorous 2.5 mg/dL (2.5-4.5); Triglycerides 230 mg/dL (<150); Uric Acid 5.6 mg/dL (2.5-8.0)
[2020-09-14] MEDS: cefTRIAXone 2 GM in DEXTROSE 5% IN WATER 50 ML IV SCH (08:11)
[2020-09-14] MEDS: HEPARIN 5,000 UNIT/ML VIAL SQ SCH ×2 (08:17→20:08)
[2020-09-14] MEDS: AZITHROMYCIN 500 MG in DEXTROSE 5% IN WATER 250 ML IV SCH (10:31)
--- NOTE | 2020-09-14 13:34 | Internal Med Progress Note ---
SUBJECTIVE Subjective Patient information: Note initiated : 09/14/20 at 1:31 pm Service Date, if different from initiated Date: [] Patient: Rosie Whitfield a 74 y/o F admitted on 09/13/20 for cough, altered mental. Chief Complaint: [] Interval history: Ms. Whitfield is a 74 year old F history of dementia who lives independently and frequently visited by her son who lives nearby. Patient has been baseline state of health however over the last few days she has gotten increasingly weak confused and incoherent. Son has found her in a days and was urinating on the floor. She was brought into the ER with change in mental status/low-grade fever Initial work-up was consistent with severe sepsis with white count 22.9, elevated lactate and evidence of endorgan failure including creatinine of 2.2. Chest imaging right upper lobe pneumonia/pyuria. Cultures were obtained and patient was started on antibiotic coverage. Subsequently hospitalist service was consulted At the time of evaluation patient is very confused and current unable to provide any history. Most of the history is obtained from review of medical records and ER physician. No family members present. 09/13-patient clinically improved. White count down to 18,000. On broad antibi otic coverage. Improving endorgan dysfunction. More lucid and able to hold a conversation. Creatinine starting to downtrend now at 2.1 from a peak of 2.2. Stable hemodynamics. Transfer to medical floor. Await cultures. Continue nutrition support/therapies 09/14-White count down to 12.6. Currently on room air. Sepsis improved. Mentation at baseline. Improving renal function with creatinine 1.5. Cultures negative so far. Tolerating diet. Anticipate discharge in 24 to 48 hours pending clinical improvement Constitutional Vitals: Vital Signs Temp Pulse Resp BP Pulse Ox 98 F 71 18 127/58 95 09/14/20 12:00 09/14/20 12:00 09/14/20 12:00 09/14/20 12:00 09/14/20 12:00 Period Temp Pulse Resp BP Sys/Jones Pulse Ox Last 24 Hr 97.0 F-99.1 F 70-72 16-18 119-134/58-74 94-96 Intake and Output 09/13/20 09/14/20 09/14/20 21:59 05:59 13:59 Intake Total 2161 500 Output Total 150 255 Balance 2010 245 Weight 80.558 kg Alert and responding commands Nonlabored breathing No anxiety Intake & Output: Intake & Output 09/13/20 09/14/20 09/14/20 21:59 05:59 13:59 Intake Total 2161 500 Output Total 150 255 Balance 2010 245 Weight 80.558 kg Intake: IV 1960 300 Sodium Chloride 0.9% 1,000 ml @ 1961 75 mls/hr IV .[id number] [facility] [place] Rx#: [id number] Zithromax 500 mg In Dextrose 5% 250 in Water 250 ml @ 250 mls/hr IV DAILY@1000 [facility] Rx#:[id number] Rocephin 2 gm In Dextrose 5% in 50 Water 50 ml @ 100 mls/hr IV DAILY [facility] Rx#:[id number] Oral 200 200 Output: Void Amount 150 255 Other: Meal Lunch Percent of Meal Consumed 100% Feeding Ability Independent Urine Appearance Clear Clear Urine Color Bright Yellow Bright Yellow Bright Yellow Urine Odor Normal Stool Size Large Stool Color Brown Stool Consistency Soft # Voids 1 1 1 OBJ DATA Labs CBC & Chem 7: 09/14/20 05:32 09/14/20 05:32 Labs: Abnormal Lab Results 09/14/20 09/14/20 09/13/20 05:32 05:32 08:47 WBC 12.8 H RBC 3.81 L Hgb 11.3 L Hct 35.0 L RDW 14.7 H MPV 10.7 H Neut % (Auto) Lymph % (Auto) 12.3 L Lymph # (Auto) [place] # (Auto) 1.32 H Absolute Neutrophils 9.64 H BUN 55 H 73 H Creatinine 1.5 H 2.1 H Magnesium 2.7 H Direct Bilirubin 0.4 H GGT 42 H AST 77 H 54 H ALT 49 H 44 H Alkaline Phosphatase 174 H 150 H Lactate Dehydrogenase 226 H Albumin 2.2 L 2.3 L Globulin 4.4 H Albumin/Globulin Ratio 0.6 L 0.5 L Triglycerides 230 H 198 H Procalcitonin Urine Appearance Urine Protein Urine Urobilinogen Urine RBC Urine WBC Urine Bacteria Granular Casts Urine Mucus Urine Yeast (Budding) 09/13/20 09/12/20 09/12/20 05:14 19:21 19:21 WBC 18.0 H 22.9 H RBC 3.96 L Hgb 11.7 L Hct 35.3 L RDW MPV 10.9 H 11.3 H Neut % (Auto) 85.8 H 87.8 H Lymph % (Auto) 5.9 L 3.5 L Lymph # (Auto) 1.06 L 0.80 L Lynn # (Auto) 1.42 H 1.92 H Absolute Neutrophils 15.45 H 20.11 H BUN Creatinine Magnesium Direct Bilirubin GGT AST ALT Alkaline Phosphatase Lactate Dehydrogenase Albumin Globulin Albumin/Globulin Ratio Triglycerides Procalcitonin Urine Appearance Cloudy A Urine Protein 30 A Urine Urobilinogen 4.0 A Urine RBC 13 H Urine WBC 6 H Urine Bacteria Few A Granular Casts 4 H Urine Mucus Few A Urine Yeast (Budding) Many A 09/12/20 09/12/20 19:20 19:20 WBC RBC Hgb Hct RDW MPV Neut % (Auto) Lymph % (Auto) Lymph # (Auto) [place] # (Auto) Absolute Neutrophils BUN 82 H Creatinine 2.2 H Magnesium Direct Bilirubin GGT AST 81 H ALT 53 H Alkaline Phosphatase 199 H Lactate Dehydrogenase Albumin Globulin 4.4 H Albumin/Globulin Ratio 0.7 L Triglycerides Procalcitonin 1.83 H Urine Appearance Urine Protein Urine Urobilinogen Urine RBC Urine WBC Urine Bacteria Granular Casts Urine Mucus Urine Yeast (Budding) Meds: Medications Acetaminophen (Acetaminophen 325 Mg Tablet) 650 mg PO Q4-6HP PRN; Protocol PRN Reason: Per Pain Protocol/Fever > 101 Bisacodyl (Bisacodyl 10 Mg Supp.Rect) 10 mg SD Q2-3DAYS PRN PRN Reason: Constipation Docusate Sodium (Docusate Sodium 100 Mg Capsule) 100 mg PO BID [facility] Last Admin: 09/14/20 08:09 Dose: 100 mg Documented by: Guaifenesin/Codeine Phosphate (Guaifenesin/Codeine 10 Ml Udc) 10 ml PO Q4HP PRN PRN Reason: Cough Heparin Sodium (Porcine) (Heparin 5,000 Unit/Ml Vial) 5,000 unit SQ Q12 [facility] Last Admin: 09/14/20 08:17 Dose: 5,000 unit Documented by: Sodium Chloride (Sodium Chloride 0.9%) 1,000 mls @ 75 mls/hr IV .[id number] [facility] Last Admin: 09/14/20 03:52 Dose: 75 mls/hr Documented by: Sodium Chloride (Sodium Chloride 0.9%) 1,000 mls @ 0 mls/hr IV .Q0M [facility] Acetaminophen (Ofirmev) 650 mg in 65 mls @ 130 mls/hr IV Q6HP PRN; Protocol PRN Reason: Per Pain Protocol/Fever > 101 Azithromycin 500 mg/ Dextrose 250 mls @ 250 mls/hr IV DAILY@1000 [facility]; Protocol Stop: 09/15/20 10:59 Last Infusion: 09/14/20 11:35 Dose: Infused Documented by: Ceftriaxone Sodium 2 gm/ (Dextrose) 50 mls @ 100 mls/hr IV DAILY [facility] [place]; Protocol Last Infusion: 09/14/20 08:45 Dose: Infused Documented by: Magnesium Sulfate (Magnesium Sulfate) 2 gm in 50 mls @ 50 mls/hr IV UD PRN PRN Reason: MG = or < 1.7 Potassium Chloride 40 meq/ (Dextrose) 520 mls @ 130 mls/hr IV UD PRN PRN Reason: K+ = or < 3.5 Iron Carb/Multivit/[place]/Folic Acid (Multivit,Ther Iron,Ca,Fa & Min 1 Tablet) 1 tab PO DAILY [facility] [place] Last Admin: 09/14/20 08:09 Dose: 1 tab Documented by: Melatonin (Melatonin 3 Mg Tablet) 3 mg PO HSP PRN PRN Reason: Insomnia Last Admin: 09/13/20 22:06 Dose: 3 mg Documented by: Ondansetron HCl (Ondansetron 4 Mg Odt Tablet) 4 mg SL Q4-6HP PRN; Protocol PRN Reason: Nausea And Vomiting Ondansetron HCl (Ondansetron 4 Mg/2 Ml Vial) 4 mg IV Q4-6HP PRN; Protocol PRN Reason: Nausea And Vomiting Polyethylene Glycol (Polyethylene Glycol 3350 17 Gm Packet) 17 gm PO DAILYP PRN PRN Reason: Constipation Senna/Docusate Sodium (Sennosides/Docusate Sodium 1 Tab Tablet) 1 tab PO HS [facility] [place] Last Admin: 09/13/20 22:06 Dose: 1 tab Documented by: Sodium Chloride (0.9 % Sodium Chloride 10 Ml Syringe) 10 ml IV Q8 [facility] [place] Last Admin: 09/14/20 13:21 Dose: Not Given Documented by: A/P Narrative A/P Narrative: * Severe sepsis with multiple organ dysfunction including BRITTNY/elevated LFTs/mental status change/elevated lactate-clinically resolved with management per guidelines. Cultures negative so far. Stable hemodynamics. * Right upper lobe pneumonia -continue antibiotic coverage * Complicated UTI improving on antibiotics * Acute renal failure creatinine down to 1.5 from 2.2 * Elevated LFTs secondary to sepsis endorgan dysfunction, clinically improving * History of hypertension restart antihypertensives with holding parameters * History dementia continue memantine * Prophylaxis Heparin Plan * DC telemetry monitoring * Continue antibiotic coverage/crystalloid * Monitor renal function * Pre-existing medical condition management home medications * PT OT nutrition support * Discharge planning possibly SNF versus home health to be coordinated by case management Time Spent With Patient Time: Total time spent is greater than 50% in coordination of care (as documented) at patient's floor/unit and/or counseling patient:
[2020-09-14] MEDS: MELATONIN 3 MG TABLET PO PRN (20:08)
[2020-09-14] MEDS: SENNOSIDES/DOCUSATE SODIUM 1 TAB TABLET PO SCH (20:09)
[2020-09-15] MEDS: 0.9 % SODIUM CHLORIDE 10 ML SYRINGE IV SCH ×2 (05:24→13:15)
[2020-09-15] MEDS: 0.9 % SODIUM CHLORIDE 1,000 ML IV SCH ×2 (05:24→07:56)
[2020-09-15 07:35] LABS: Basophils # (Auto) 0.11 K/mcL (0.00-0.20); Eosinophils # (Auto) 0.22 K/mcL (0.00-0.70); Eosinophils % (Auto) 2.1 % (0.0-7.0); Hematocrit 37.6 % (36.0-48.0); Hemoglobin 12.2 g/dL (12.0-15.0); Lymphocytes # (Auto) 1.86 K/mcL (1.50-4.80); Lymphocytes % (Auto) 17.5 % (15.0-49.0); Mean Corpuscular HGB Conc 32.4 g/dL (31.0-36.0); Mean Platelet Volume 10.3 fL (7.4-10.4); Monocytes # (Auto) 0.92 K/mcL (0.10-0.90); Monocytes % (Auto) 8.7 % (1.0-12.0); Neutrophils % (Auto) 70.7 % (38.0-78.0); Platelet Count 372 K/mcL (140-440); RBC 4.13 M/mcL (4.00-5.20); Red Cell Distribution Width 14.9 % (11.5-14.5); WBC 10.6 K/mcL (4.5-11.0)
[2020-09-15 07:55] LABS: ALT/SGPT 54 U/L (<40); AST/SGOT 64 U/L (<32); Albumin 2.6 gm/dL (3.2-5.2); Albumin/Globulin Ratio 0.6 (1.0-2.3); Alkaline Phosphatase 179 U/L (39-117); Bilirubin,Direct < 0.2 mg/dL (0-0.3); Bilirubin,Total 0.4 mg/dL (0.1-1.0); Blood Urea Nitrogen 33 mg/dL (8-23); Calcium 8.9 mg/dL (8.6-10.4); Carbon Dioxide 23 mmol/L (22-30); Chloride 108 mmol/L (96-108); Globulin 4.1 gm/dL (2.2-3.7); Glomerular Filtration Rate 44; Glucose 87 mg/dL (70-105); Lactate Dehydrogenase 197 U/L (135-225); Phosphorous 2.8 mg/dL (2.5-4.5); Triglycerides 229 mg/dL (<150); Uric Acid 5.1 mg/dL (2.5-8.0)
[2020-09-15] MEDS: DOCUSATE SODIUM 100 MG CAPSULE PO SCH (07:58)
--- NOTE | 2020-09-15 08:46 | XRay Report ---
HISTORY: Follow-up right upper lobe pneumonia FINDINGS: There is a stable large consolidating alveolar infiltrate in the right upper lobe with air bronchograms. The remainder of the lung ford are clear. No adenopathy is detected. There is no pleural effusion. The heart size is normal. Pacemaker remains well-positioned and there is no pulmonary vascular congestion. Comparison with the prior exam from 09/12/20 shows no change. IMPRESSION: Stable right upper lobe pneumonia Interpreted and Authenticated by: Abelino Street 09/15/20
[2020-09-15] MEDS: cefTRIAXone 2 GM in DEXTROSE 5% IN WATER 50 ML IV SCH (09:57)
[2020-09-15] MEDS: MULTIVIT,THER IRON,CA,FA & MIN 1 TABLET PO SCH (10:00)
[2020-09-15] MEDS ORDERED: FLU VACC QS2020-21(6MOS UP)/PF 60 MCG/0.5 ML SYRINGE IM ONE (10:00)
[2020-09-15] MEDS: HEPARIN 5,000 UNIT/ML VIAL SQ SCH (10:01)
[2020-09-15] MEDS: AZITHROMYCIN 500 MG in DEXTROSE 5% IN WATER 250 ML IV SCH (10:58)
--- NOTE | 2020-09-15 13:44 | Discharge Summary ---
Discharge Provider Provider Patient information: Note initiated : 09/15/20 at 1:41 pm Service Date, if different from initiated Date: [] Patient: Rosie Whitfield a 74 y/o F admitted on 09/13/20 for cough, altered mental. Discharge diagnosis * Severe sepsis with multiple organ dysfunction including BRITTNY/elevated LFTs/mental status change/elevated lactate-clinically resolved with management per guidelines. Discharging to SNF for post outpatient rehab and continue antibiotic * Right upper lobe pneumonia -clinical improvement noted however however radiologically unchanged. Continue additional 5 days oral antibiotics. * Complicated UTI resolved on antibiotics * Acute renal failure creatinine down to 1.5 from 2.2 * Elevated LFTs secondary to sepsis endorgan dysfunction, clinically resolved * History of hypertension restart antihypertensives with holding parameters at SNF * History dementia continue memantine Brief hospital course Ms. Whitfield is a 74 year old F history of dementia who lives independently and frequently visited by her son who lives nearby. Patient has been baseline state of health however over the last few days she has gotten increasingly weak confused and incoherent. Son has found her in a days and was urinating on the floor. She was brought into the ER with change in mental status/low-grade fever Initial work-up was consistent with severe sepsis with white count 22.9, elevated lactate and evidence of endorgan failure including creatinine of 2.2. Chest imaging right upper lobe pneumonia/pyuria. Cultures were obtained and patient was started on antibiotic coverage. Subsequently hospitalist service was consulted At the time of evaluation patient is very confused and current unable to provide any history. Most of the history is obtained from review of medical records and ER physician. No family members present. 09/13-patient clinically improved. White count down to 18,000. On broad antibiotic coverage. Improving endorgan dysfunction. More lucid and able to hold a conversation. Creatinine starting to downtrend now at 2.1 from a peak of 2.2. Stable hemodynamics. Transfer to medical floor. Await cultures. Continue nutrition support/therapies 09/14-White count down to 12.6. Currently on room air. Sepsis improved. Mentation at baseline. Improving renal function with creatinine 1.5. Cultures negative so far. Tolerating diet. Anticipate discharge in 24 to 48 hours pending clinical improvement 09/15- Patient discharging to SNF. Doing well. No overnight events. Renal function normalized. Afebrile sepsis clinically resolved. Continue antibiotic coverage for additional 5 days. Follow-up PCP in 5 to 7 days. Continue posthospitalization rehab. Date of admission: 09/13/20 00:16 Discharge date: 09/15/20 Primary care physician: Olga Bass Consults: 09/12/20 Consult to Physician [CONS] Stat Comment: Consulting Provider: Mc Beavers Reason For Exam: Physician to Consult Discharge Meds Discharge Medications Home Medications losartan 50 mg tablet 50 mg PO QHS #30 tab 08/09/20 [Rx Confirmed 09/13/20 Last Taken Unknown] memantine 7 mg capsule sprinkle,extended release 24hr 7 mg PO QHS #30 each 08/09/20 [Rx Confirmed 09/13/20 Last Taken Unknown] cefdinir 300 mg PO BID #10 cap 09/15/20 [Rx Last Taken Unknown] COURSE Hospital Course Hospital course: , Discharge diagnosis: Community-acquired pneumonia, sepsis Time Spent with Patient Time attestation: Total time spent providing and/or coordinating discharge services: EXAM Constitutional Vitals: Temp Pulse Resp BP Pulse Ox 97.9 F 69 18 142/65 97 09/15/20 11:08 09/15/20 11:08 09/15/20 11:08 09/15/20 11:08 09/15/20 11:08 Discharge Data Data Completed and Pending Labs on day of discharge: Labs from last 24 hours 09/15/20 09/15/20 05:57 05:57 WBC 10.6 RBC 4.13 Hgb 12.2 Hct 37.6 MCV 91.0 MCH 29.5 MCHC 32.4 RDW 14.9 H Plt Count 372 MPV 10.3 Neut % (Auto) 70.7 Lymph % (Auto) 17.5 White % (Auto) 8.7 Eos % (Auto) 2.1 Baso % (Auto) 1.0 Lymph # (Auto) 1.86 White # (Auto) 0.92 H Eos # (Auto) 0.22 Baso # (Auto) 0.11 Absolute Neutrophils 7.51 Sodium 141 Potassium 3.7 Chloride 108 Carbon Dioxide 23 Anion Gap 10.0 BUN 33 H Creatinine 1.2 H GFR Calculation 44 Glucose 87 Uric Acid 5.1 Calcium 8.9 Phosphorus 2.8 Magnesium 2.4 Total Bilirubin 0.4 Direct Bilirubin < 0.2 GGT 51 H AST 64 H ALT 54 H Alkaline Phosphatase 179 H Lactate Dehydrogenase 197 Total Protein 6.7 Albumin 2.6 L Globulin 4.1 H Albumin/Globulin Ratio 0.6 L Triglycerides 229 H Preliminary micro results at discharge 09/12/20 19:56 Blood Culture - Preliminary Blood 09/12/20 19:50 Blood Culture - Preliminary Blood Discharge Plan Patient/Caregiver Discharge Instructions Activity: increase activity as tolerated Diet: Regular Diet Activity Restrictions/Additional Instructions: Follow-up PCP in 5 to 7 days continue antibiotics for additional 5 days Return to ER if fever chills shortness of breath Prescriptions: New cefdinir 300 MG capsule 300 mg PO BID Qty: 10 RF: 0 Continued memantine [Namenda XR] 7 mg capsule,sprinkle,ER 24hr 7 mg PO QHS Qty: 30 RF: 12 losartan 50 mg tablet 50 mg PO QHS Qty: 30 RF: 12 Follow Up Plan Follow up with: Olga Bass MD [Primary Care Provider] - Patient Disposition: Xfer SNF Rehab Potential: Fair I certify that the patient requires SNF services: Yes Overall status at discharge: patient is progressing back to baseline Discharge Orders: Discharge Order (Routine); Ordered 09/15/20 Ordered By: Mc Beavers
== END 2020-09-15 14:48 | DRG 871 ==
LOC: ED 18:51 → ICU 09-13 00:16 → MEDSUR 09-13 12:51
PROVIDERS: ADMIT Internal Medicine; ATTEND Internal Medicine